=== PATIENT | female | born 1945 | race Caucasian/White ===

== ENCOUNTER 2021-11-19 00:31 | Day surgery (SDC) | payer OTHER, SELFPAY ==
[2021-11-18 12:55] VITALS: BMI 31.0
[2021-11-19] VITALS (17 sets, daily range): BP systolic 110–159; BP diastolic 49–84; PULSE 58–79; RESP 15–19; TEMP 36.4–37.4; O2SAT 93–100; BMI 31.4
[2021-11-19] MEDS: SODIUM CHLORIDE 0.9% IV 500 ML 100 ML IV CONT (09:35)
[2021-11-19 09:42] LABS: Basophils Absolute Auto 0.1 K/mm3 (0.0-0.1); Basophils Percent Auto 0.9 % (0.2-1.2); Eosinophils Absolute Auto 0.2 K/mm3 (0-0.3); Eosinophils Percent Auto 2.9 % (0-4.4); Hematocrit 39.1 % (37.0-47.0); Hemoglobin 12.6 g/dL (12.0-15.0); Immature Granulocyte Absolute 0.02 K/mm3 (0.00-0.031); Immature Granulocyte Percent A 0.3 % (0-0.5); Lymphocytes Percent Auto 20.6 % (18.3-44.2); Mean Corpuscular HGB Conc 32.2 g/dl (32-36); Mean Corpuscular Hemoglobin 30.1 pg (26-34); Mean Corpuscular Volume 93.5 fl (80-100); Mean Platelet Volume 11.2 fl (7.4-10.4); Monocytes Absolute Auto 0.9 K/mm3 (0.1-0.6); Monocytes Percent Auto 12.8 % (2.6-8.5); Neutrophils Absolute Auto 4.2 K/mm3 (1.3-6.7); Neutrophils Percent Auto 62.5 % (45.5-73.1); Platelet Count Result 281 k/mm3 (150-375); Red Blood Count 4.18 M/mm3 (4.2-5.4); Red Cell Distribution Width 13.4 % (11.5-14.5); White Blood Count 6.8 K/mm3 (4.5-10.0)
[2021-11-19 10:43] LABS: Prothrombin Time 13.1 Seconds (11.1-14.7)
[2021-11-19 10:45] LABS: Anion Gap 5 mmol/L (8-16); Blood Urea Nitrogen 22 mg/dL (7-17); Calcium 8.5 mg/dL (8.4-10.2); Carbon Dioxide 27 mmol/L (22-30); Chloride 105 mmol/L (98-107); Estimated CRCL calculation 56 ml/min; Estimated Glomerular Filt Rate > 60; Glucose 98 mg/dL (65-110); Potassium 3.6 mmol/L (3.4-5.0); Sodium 137 mmol/L (137-145)
--- NOTE | 2021-11-19 12:16 | SUR.PREOP ---
[facility] HAS BEEN DELAYED PAST 1030 START TIME DUE TO INPATIENT PROCEDURE BEING PERFORMED BY DR. MONTGOMERY. PT. AND FAMILY HAVE BEEN ADVISED ON SUCH PRIOR TO DELAY AND KEPT UPDATED. VOICE UNDERSTANDING.
--- NOTE | 2021-11-19 12:28 | SUR.PREOP ---
DR. MONTGOMERY TO BEDSIDE TO SEE PT.
--- NOTE | 2021-11-19 12:37 | WPDHPUPDATE1 ---
History and Physical Update Update Date/Time: 11/19/21 12:37 History and Physical has been reviewed, including an updated exam of the patient. There are NO changes in the patient's condition. Risks, benefits, and alternatives have been discussed and questions answered. Patient agrees to proceed with procedure.
--- NOTE | 2021-11-19 12:37 | WPDMODSED ---
Moderate Sedation Note-Pt Data Patient Data Allergies Allergy/AdvReac Type Severity Reaction Status Date / Time alcohol Allergy Severe ITCHING Verified 11/19/21 10:23 ranitidine Allergy Intermediate ITCHING Verified 11/19/21 10:23 Rphrmpi-[id number] Reductase AdvReac Insomnia Verified 11/19/21 10:23 Inhibitor ANESTHESIA Allergy Severe LIP AND Uncoded 11/19/21 10:23 TONGUE SWELLING Home Medications Medication Instructions Recorded Confirmed Type diclofenac sodium 75 mg 75 mg PO BID #180 tablet 09/03/21 11/18/21 Rx tablet,delayed release ascorbate calcium (vitamin C) 500 500 mg PO DAILY PRN 09/15/21 11/18/21 History mg tablet aspirin 81 mg tablet,delayed 81 mg PO HS 09/15/21 11/18/21 History release ezetimibe 10 mg tablet 10 mg PO DAILY 09/15/21 11/18/21 History hydrochlorothiazide 25 mg tablet 25 mg PO DAILY 09/15/21 11/18/21 History losartan 100 mg tablet 100 mg PO DAILY 09/15/21 11/18/21 History multivitamin 1 tablet PO DAILY 09/15/21 11/18/21 History omeprazole 20 mg capsule,delayed 20 mg PO DAILY 09/15/21 11/18/21 History release vitamin B complex 1 tablet PO DAILY 09/15/21 11/18/21 History Current Medications: Active Medications Sodium Chloride (Normal Saline Iv) 500 mls @ 100 mls/hr IV CONT .Q5H BERTIN Last Admin: 11/19/21 09:35 Dose: 100 mls/hr Documented by: Sedation/Anesthesia: No previous sedation/anesthesia problems (including family history). [facility] Past Medical History Medical History Allergic urticaria Carotid stenosis, left 04/2014 GERD (gastroesophageal reflux disease) Hypertension Osteoarthritis of hands, bilateral Pure hypercholesterolemia, unspecified Unilateral primary osteoarthritis, right knee Surgical History Surgical History History of total left knee replacement (TKR) Family History Family History Mother Cerebrovascular accident Dementia Other Family history of arthritis Hypertension Social History Social History Smoking status: Never smoker Second hand tobacco smoke exposure: No Alcohol intake: former Substance use: never Substance use type: does not use Living arrangements: alone Gender identity (if verbalized by the patient): Female Sexual Orientation (if Verbalized by the Patient): Straight or Heterosexual Spiritual care concerns: Yes Agree to blood products: Yes Mod Sed Physical Exam Physical Exam Pre Procedural Exam: Normal: Appearance, Eyes, Ears, Nose, Neck, Throat, Airway, Lungs, Heart Size, Heart Rate, Heart Rhythm, Neuro Exam, Abdomen, Liver, Kidneys, Spleen, Breasts, Genitalia, Extremities and Skin Hours since solid foods: 8 Hours since liquid intake: 8 Mallampati Classification: class 1 Internal Medicine - PN: Obj Da Vital Signs Vital Signs: Vital Signs - 24 hr 11/19/21 09:56 Temperature 36.6 C Pulse Rate 58 L Respiratory Rate 18 Blood Pressure 145/56 H Pulse Oximetry 100 Meds/Results Medications: Active Medications Generic Name Dose Route Start Last Admin Trade Name Freq PRN Reason Stop Dose Admin Sodium Chloride 500 mls @ 100 mls/hr 11/19/21 09:00 11/19/21 09:35 Normal Saline Iv IV CONT 100 mls/hr .Q5H BERITN Administration Labs CBC & Chem 7: 11/19/21 09:32 11/19/21 10:09 Labs: Laboratory Results - last 24 hr 11/19/21 11/19/21 11/19/21 09:32 10:09 10:09 WBC 6.8 RBC 4.18 L Hgb 12.6 Hct 39.1 MCV 93.5 MCH 30.1 MCHC 32.2 RDW 13.4 Plt Count 281 MPV 11.2 H Immature Gran % (Auto) 0.3 Neut % (Auto) 62.5 Lymph % (Auto) 20.6 Atkinson % (Auto) 12.8 H Eos % (Auto) 2.9 Baso % (Auto) 0.9 Lymph # (Auto) 1.40 Atkinson # (Auto) 0.9 H Eos # (Auto) 0.2 Baso # (Auto) 0.1 Abs Im
--- NOTE | 2021-11-19 12:38 | P.PCNCC_ITS ---
Cardiac Cath Procedure Note Date of procedure:: 11/19/21 Performing physician:: Baltazar Prado MD date of service 11/19/2021 Indication:: abnormal stress test Brief clinical history:: this 76-year-old female with history of hyperlipidemia and hypertension has been having exertion chest pain and shortness of breath underwent stress testing that shows anterior ischemia. Procedure Procedure performed:: 1-Moderate sedation that started at 12:40 p.m. and ended [id number] using 2mg of Versed and 50mcg fentanyl. The registered nurse was bhumi cam 2-Selective left and right coronary angiogram. 3-Left heart catheterization with measurement of LVEDP and measurement of gradient across aortic valve. 4- deployment of drug-eluting stent Xience 2.5 x 12 covering the mid LAD. postdilatation of the stent using 2.5 x 8 noncompliant balloon to inflations under nominal pressure for 25 seconds each. 4-Right common femoral arterial angiogram. 5-Deployment of 6 Indonesian Angio-Seal. Sedation/Medication given:: Moderate sedation. Access site:: Right common femoral artery. Estimated blood loss:: 10cc Procedure note:: After informed consent patient was brought in to lab coordinator with the was draped and prepped in usual manner. Moderate sedation was given and the right groin was infiltrated using 1% lidocaine. Five Indonesian sheath was obtained using micropuncture needle and the modified Seldinger technique. Selective left coronary angiogram was done using JL3.5 catheter with the tip of the catheter placed in the left main coronary artery. Selective right coronary angiogram was done using JR4 catheter with the tip of the catheter placed to the right coronary artery. After that 5 Indonesian pigtail catheter was advanced across the aortic valve into the left ventricle with measurement of LVEDP and measurement of gradient across aortic valve. Right common femoral arterial angiogram was done. after that 6 Indonesian she has inserted in right femoral artery. CLS 3 was advanced engaging the left main. Coronary wire advanced in distal LAD. Balloon angioplasty was done using 2.5 x 10 to mid LAD and a normal pressure for 25 seconds. Two inflations. Deployed a drug-eluting stent Xience 2.5 x 12 covering mid LAD. Postdilatation of the stent using 2.5 x 8 noncompliant balloon 2 inflations each under normal pressure for 25 seconds Findings:: 1- left coronary artery is a large artery that divides into LAD, circumflex artery. Left main is free of disease. 2- left anterior descending artery is a Medium size artery that runs to the apex. Mid LAD 80%. Large diagonal branch comes after the stenosis with minimal irregularities. Lad diffusely calcified proximally in the mid segment. 3- leftcircumflex artery is a large artery. Diffuse calcification proximally with minimal irregularities. High OM1 with minimal irregularities, medium-sized OM2 with ostial 90%, medium-sized OM3 without significant disease. 4- right coronary artery is Diffusely calcified with minimal irregularities. 5- LVEDP was 10 mm Hgand no gradient across aortic valve. 6- opening arterial pressure was 160/80 and closing pressure was 170/90 7- right femoral artery angiogram shows no significant disease in the right common femoral artery. Conclusion:: - Successful stenting of mid LAD\ - high-grade stenosis at ostial OM branch that is medium in size however high risk for intervention. will be managed medically Assessment and Plan Additional Plan continue aspirin and Brilinta aggressive risk factor modification for CAD
--- NOTE | 2021-11-19 14:43 | ECG_ITS ---
Measurements Intervals [place] Rate: 57 P: 54 MA: 151 QRS: 46 QRSD: 96 T: 20 QT: 423 QTc: 414 Interpretive Statements SINUS BRADYCARDIA EARLY TRANSITION CANNOT RULE OUT INFERIOR INFARCTION, AGE UNDETERMINED NONSPECIFIC T-WAVE ABNORMALITY ABNORMAL ECG NO PREVIOUS ECG AVAILABLE FOR COMPARISON Electronically Signed On 11-19-2021 16:04:47 CDT by Rashel Lozano M.D.
--- NOTE | 2021-11-19 15:30 | SUR.PHASEII ---
All charting is now currently in PCS
--- NOTE | 2021-11-19 16:32 | PC.NURSE ---
This patient, Lexy Mccoy, was received from [facility] on 11/19/21 at 1632. Patient/family oriented to unit policies and routines
--- NOTE | 2021-11-19 16:54 | PC.NURSE ---
At 1516 Patient who presented as outpatient [facility] is now admitted to extended recovery IMU status s/p PCI. Patient charting converted from ASHLEY tracker to PCS. Patient in stable condition.
--- NOTE | 2021-11-19 17:00 | PC.NURSE ---
Patient transferred to IMU bed 7 monitored via stretcher with RN x2 at 16:30. Bedside report given to Debby KEYES.
[2021-11-19] MEDS: SODIUM CHLORIDE 0.9% IV 1,000 ML 125 ML IV CONT (17:29)
[2021-11-19] MEDS: ASPIRIN 81 MG ENTERIC TABLET PO (21:08)
[2021-11-19] MEDS: TICAGRELOR 90 MG TABLET PO (21:08)
[2021-11-20 04:00] VITALS: BP 117/48; PULSE 57; RESP 16; TEMP 36.2; O2SAT 97
[2021-11-20 05:06] VITALS: O2SAT 97
[2021-11-20 05:18] LABS: Anion Gap 4 mmol/L (8-16); Blood Urea Nitrogen 16 mg/dL (7-17); Carbon Dioxide 24 mmol/L (22-30); Chloride 109 mmol/L (98-107); Estimated CRCL calculation 56 ml/min; Estimated Glomerular Filt Rate > 60; Glucose 118 mg/dL (65-110); Potassium 3.7 mmol/L (3.4-5.0); Sodium 137 mmol/L (137-145)
--- NOTE | 2021-11-20 07:00 | ECG_ITS ---
Measurements Intervals [place] Rate: 60 P: 73 CO: 145 QRS: 14 QRSD: 105 T: -1 QT: 392 QTc: 393 Interpretive Statements SINUS RHYTHM EARLY TRANSITION PROBABLE INFERIOR MYOCARDIAL INFARCTION , PROBABLY OLD WITH POSTERIOR EXTENSION [35 ms Q WAVE IN II/aVFPROMINENT R WAVE IN V1/ NONSPECIFIC T-WAVE ABNORMALITY ABNORMAL ECG COMPARED TO ECG 11/19/2021 14:50:36 SINUS RHYTHM NOW PRESENT Electronically Signed On 11-20-2021 16:23:54 CDT by Rashel Lozano M.D.
[2021-11-20 08:00] VITALS: BP 119/48; PULSE 58; PULSE 62; RESP 16; TEMP 36.4; O2SAT 96
--- NOTE | 2021-11-20 08:44 | PM.DS ---
DS: Admitting Diagnosis Discharge Date 11/20/21 Admitting Diagnosis CAD DS: Discharge Diagnosis Discharge Diagnosis (1) Presence of coronary angioplasty implant and graft: Onset Date: ~10/2021 Code(s): Z95.5 - Presence of coronary angioplasty implant and graft Status: Acute Assessment and Plan: Entered the hospital following elective coronary angiogram and PCI on 11/19/2021. Was found to have 80% stenosis of the mid LAD which was treated with placement of a 2.5 x 12mm ZACARIAS. She also has high grade stenosis at the ostium of the OM branch that was considered too high risk for intervention. This will be managed medically. She is stable this morning, feeling well and denies any chest pain or shortness of breath. Plan for d/c home today. (2) CAD (coronary artery disease): Code(s): I25.10 - Atherosclerotic heart disease of [place] coronary artery without angina pectoris Status: Acute Assessment and Plan: Coronary artery disease as described above Continue ASA Continue Brilinta Continue zetia Lifestyle modifications for CAD risk reduction DS: Summary Hospital Course Hospital Course: Presented for planned coronary angiogram on 11/19/2021. Findings are as follows: 1- left coronary artery is a large artery that divides into LAD, circumflex artery. Left main is free of disease. 2- left anterior descending artery is a Medium size artery that runs to the apex. Mid LAD 80%. Large diagonal branch comes after the stenosis with minimal irregularities. Lad diffusely calcified proximally in the mid segment. 3- left circumflex artery is a large artery. Diffuse calcification proximally with minimal irregularities. High OM1 with minimal irregularities, medium-sized OM2 with ostial 90%, medium-sized OM3 without significant disease. 4- right coronary artery is Diffusely calcified with minimal irregularities. 5- LVEDP was 10 mm Hg and no gradient across aortic valve. 6- opening arterial pressure was 160/80 and closing pressure was 170/90 7- right femoral artery angiogram shows no significant disease in the right common femoral artery. She did not have any procedural complications. Feeling well this morning without complaint. She is stable and appropriate for discharge home today. Status at Discharge Functional status at discharge: independent ambulation Overall status at discharge: patient is back to baseline Time Spent with Patient Time attestation: Total time spent providing and/or coordinating discharge services: Exam Const: General: comfortable and no acute distress HENMT: Head: normal to inspection and normocephalic Ears: hearing grossly normal bilaterally Eyes: General: appearance normal, both eyes and all related structures Neck: Neck: supple and no JVD Resp: Auscultation: clear to auscultation bilaterally Cardio: Rate: regular rate Rhythm: regular rhythm Heart sounds: Murmur heart sound present systolic I/ and at the left sternal border GI: GI Palp: Yes Soft to palpation Skin: General skin exam: normal color Other: R groin arterial access site free from bleeding, hematoma, or bruit. Extrem: General: normal to inspection and no edema Other: distal pulses intact Psych: Mental Status: mental status grossly normal Speech and movement: Normal speech and movement present DS: Data Data Completed and Pending Labs on day of discharge: Labs from last 24 hours 11/20/21 11/19/21 11/19/21 04:47 10:09 10:09 WBC RBC Hgb Hct MCV MCH MCHC RDW Plt Count MPV Immature Gran % (Auto) Neut % (Auto) Lymph % (Auto) Hardy % (Auto) Eos % (Auto) Baso % (Auto) Lymph # (Auto) Hardy # (Auto) Eos # (Auto) Baso # (Auto) Abs Immat Gran (auto) Absolute Neuts (auto) Absolute Nucleated RBC Nucleated RBC % PT 13.1 INR 1.0 Sodium 137 137 Potassium 3.7 3.6 Chloride 109 H 105 Carbon Dioxide 24 27
[2021-11-20] MEDS: LOSARTAN POTASSIUM 100 MG TABLET PO (08:59)
[2021-11-20] MEDS: VITAMIN B COMPLEX CAPSULE 1 CAP PO (08:59)
[2021-11-20] MEDS: TICAGRELOR 90 MG TABLET PO (08:59)
[2021-11-20] MEDS: EZETIMIBE 10 MG TABLET PO (08:59)
[2021-11-20] MEDS: hydroCHLOROthiazide 25 MG TABLET PO (08:59)
[2021-11-20] MEDS: PANTOPRAZOLE 40 MG TABLET PO (08:59)
--- NOTE | 2021-11-20 13:52 | PCCCNOTE ---
On 11/20/21, the student, [Swetha Anne], provided care and completed [facility] documentation on this patient. I have reviewed the student's documentation and agree with the findings.
== END 2021-11-20 11:23 | disposition home or self-care (01) ==
LOC: ANHCATHLAB 09:09 → ANHIMU 15:18
PROVIDERS: PCP Family Medicine Adolescent Medicine; Visit Provider Internal Medicine Cardiovascular Disease
PROC: 4A023N7 Measurement of Cardiac Sampling and Pressure, Left Heart, Percutaneous Approach (ICD-10-PCS; CPT 93452; principal; 2021-11-19 10:30)
DX: I25.10 Atherosclerotic heart disease of native coronary artery without angina pectoris (principal); R94.39 Abnormal result of other cardiovascular function study; R07.9 Chest pain, unspecified; R06.02 Shortness of breath; I10 Essential (primary) hypertension; E78.5 Hyperlipidemia, unspecified; K21.9 Gastro-esophageal reflux disease without esophagitis; Z79.82 Long term (current) use of aspirin
CPT/HCPCS: 36415; 80048; 85025; 85610; 93005; 93458; A9270; C1725; C1760; C1769; C1874; C1887; C1894; C9600; G0269; J0583; J1200; J1644; J2250; J2930; J3010; J7030; J7040

== ENCOUNTER 2021-11-25 13:30 | Outpatient (RCR) | payer OTHER, SELFPAY ==
--- NOTE | 2021-09-23 09:42 | PTOPEVAL ---
PHYSICAL THERAPY EVALUATION and PLAN OF CARE Thank you for referring Lexy Mccoy to [facility] [place].? The patient is scheduled to be seen for therapy? 1x/week for 3 weeks. Please review, sign, date and return this plan of care PREMA. I agree with and certify that the following plan of care is medically necessary. Referring Physician Date Attending Provider: Debby Philip PA-C Evaluation Diagnosis right shoulder/arm pain Onset 3months ago Subjective Information States that she feels like she Query Text:As Reported By Patient/ has a frozen shoulder - this Family feels like a frozen shoulder she had several years ago. Most recently though she has developed a pain in the upper arm that actually stopped when taking an antibiotic for dental work. The sharp pain is now gone but she cannot use her computer mouse without an ache starting in and she has quite limited shoulder ROM. Self Report Pain Assessment Right Arm(s) Reported Pain Level 2 Pain Description Aching Pain Frequency Chronic,Continuous Greatest Pain Intensity 8 Pain Score Pain Score 2: Self Report Interventions Used Interventions Used By Clinicians Exercise,Manual Therapy Techniques Pain Relief Interventions Used By Inactivity/Rest Patient Upper Extremity Range of Motion Scapular/ Shoulder Range of Motion Right Shoulder Flexion - Active 110 Shoulder Abduction - Active 75 Shoulder Medial Rotation - Active iliac crest Query Text:Reach Behind the Back Shoulder Lateral Rotation - Active 32 Upper Extremity Muscle Strength Testing Scapular/Shoulder Right Shoulder Flexion Strength 3 Fair Shoulder Abduction Strength 3 Fair Shoulder Medial Rotation Strength 4 Good Shoulder Lateral Rotation Strength 4 Good Elbow/Forearm Right Elbow Flexion Strength 4+ Good + Elbow Extension Strength 4+ Good + Special Tests-Upper Extremity Shoulder Special Tests Speed's Test Positive Right PT Clinical Summary Lexy is a 76 yo female presenting to outpatient physical therapy with chornic right shoulder pain/frozen shoulder but with more subacute right biceps pain that does present consistently with biceps tendonitis. She
--- NOTE | 2021-10-15 13:29 | PTOPEVAL ---
PHYSICAL THERAPY PROGRESS REPORT Thank you for referring Lexy Mccoy to [facility].? The patient is scheduled to be seen for therapy?for a re-assess in 3 weeks. Please review, sign, date and return this plan of care PREMA. I agree with and certify that the following plan of care is medically necessary. Referring Physician Date Attending Provider: Debby Philip PA-C Progress Diagnosis right shoulder/arm pain Onset 3months ago Subjective Information States that the big pain in Query Text:As Reported By Patient/ the shoulder has not come back Family except for one episode of sharp pain. Continues to stretch as much as she can Self Report Pain Assessment Right Arm(s) Reported Pain Level 1 Pain Score Pain Score 1: Self Report Interventions Used Interventions Used By Clinicians Exercise Upper Extremity Range of Motion Scapular/ Shoulder Range of Motion Right Shoulder Flexion - Active 120 Shoulder Abduction - Active 80 Shoulder Medial Rotation - Active right PSIS Query Text:Reach Behind the Back Shoulder Lateral Rotation - Active 52 Upper Extremity Muscle Strength Testing Scapular/Shoulder Right Shoulder Flexion Strength 4- Good - Shoulder Abduction Strength 4- Good - Shoulder Medial Rotation Strength 4+ Good + Shoulder Lateral Rotation Strength 4+ Good + Shoulder Strength Comments tends to hold right shoulder in a hiked position and requires tactile and verbal cues to relax that shoulder. PT Clinical Summary Lexy is a 76 yo female presenting to outpatient physical therapy with chronic right shoulder pain/frozen shoulder. She is progressing toward meeting her goals with increased shoulder ROM and strength compared to initial visit. She is going to continue her HEP and we will re-assess in 3 weeks. PT Services Indicated Yes Rehabilitation Potential Good Patient/Caregiver's Personal Goals for decrease pain Rehabilitation Potential Barriers to Goal Achievements None Support Requirements For Optimal None [place] Patient/Caregiver Informed of Benefits/ Yes Risks of Rehabilitation Patient/Caregiver Participated in Plan Yes of Care Patient/Caregiver Agreed with Problem Yes List/POC/Goals Treatment Frequency and Duration revisit in 3 weeks
[2021-11-05 14:02] VITALS: BP_SYST 115
--- NOTE | 2021-11-05 14:38 | PTOPEVAL ---
PHYSICAL THERAPY PROGRESS REPORT Thank you for referring Lexy Mccoy to [facility].? We will follow up with Lexy every 3 weeks for 2 months or until goals are met. Please review, sign, date and return this plan of care PREMA. I agree with and certify that the following plan of care is medically necessary. Referring Physician Date Attending Provider: Debby Philip PA-C Discharge Diagnosis right shoulder/arm pain Onset 3months ago Subjective Information Since she was last here 3 Query Text:As Reported By Patient/ weeks ago she experienced Family severe neck pain/stiffness that lasted for 3 days. She had a nuclear stress test and will likely be geting a stent soon. States that she has not been able to get a lot of exercises done. Self Report Pain Assessment Right Arm(s) Reported Pain Level 1 Pain Score Pain Score 1: Self Report Interventions Used Interventions Used By Clinicians Exercise Pain Relief Interventions Used By Inactivity/Rest Patient Upper Extremity Range of Motion Scapular/ Shoulder Range of Motion Right Shoulder Flexion - Active 128 Shoulder Flexion - Passive 140 Shoulder Abduction - Active 100 Shoulder Abduction - Passive 115 Shoulder Medial Rotation - Active right PSIS Query Text:Reach Behind the Back Shoulder Lateral Rotation - Active 55 Upper Extremity Muscle Strength Testing Scapular/Shoulder Right Shoulder Flexion Strength 3 Fair Shoulder Abduction Strength 4 Good Shoulder Medial Rotation Strength 4+ Good + Shoulder Lateral Rotation Strength 4+ Good + Elbow/Forearm Right Elbow Flexion Strength 5 Normal Elbow Extension Strength 5 Normal Palpation Assessment tender on palpation to subscapularis and serratus anterior; PT Clinical Summary Lexy is a 76 yo female presenting to outpatient physical therapy with chronic right shoulder pain/frozen shoulder. There was a limitation to her progress with her HEP because of several other medical situations. She does respond well to prolonged stretching and capsular mobilizations. We will continue to follow up every 3 weeks for 2months or until goals are met. PT Services Indicated Yes R
[2021-11-25 13:32] VITALS: BP_SYST 115
--- NOTE | 2021-11-25 14:42 | PTOPEVAL ---
PHYSICAL THERAPY DISCHARGE NOTE Thank you for referring Lexy Mccoy to [facility].? Please review, sign, date and return this plan of care PREMA. I agree with and certify that the following plan of care is medically necessary. Referring Physician Date Attending Provider: Debby Philip PA-C DISCHARGE Diagnosis right shoulder/arm pain Onset 3months ago Subjective Information States that she is going to Query Text:As Reported By Patient/ start cardiac rehab so she Family would like today to be her last day with us. Her pain is not terrible but it does bother her to wear a purse on her shoulder. Sometimes the lack of movement is bothersome and sometimes not. She was told by a nurse about the option of an injection to the shoulder to help so we discussed that as an opportunity and would need to follow-up with primary care doctor on that conversation. Pain Assessment Timing of Pain Assessment Timing of Pain Assessment Assessment Pain Scale Pain Scale Used Numeric (1 - 10) Self Report Pain Assessment Right Arm(s) Reported Pain Level 0 Pain Score Pain Score 0: Self Report Interventions Used Interventions Used By Clinicians Exercise Upper Extremity Range of Motion Scapular/ Shoulder Range of Motion Right Shoulder Flexion - Active 132 Shoulder Flexion - Passive 140 Shoulder Abduction - Active 100 Shoulder Abduction - Passive 115 Shoulder Medial Rotation - Active L3 Query Text:Reach Behind the Back Shoulder Lateral Rotation - Active 55 Upper Extremity Muscle Strength Testing Scapular/Shoulder Right Shoulder Flexion Strength 3 Fair Shoulder Abduction Strength 4- Good - Shoulder Medial Rotation Strength 4+ Good + Shoulder Lateral Rotation Strength 4+ Good + Elbow/Forearm Right Elbow Flexion Strength 5 Normal Elbow Extension Strength 5 Normal PT Clinical Summary Lexy is a 76 yo female presenting to outpatient physical therapy with chronic right shoulder pain/frozen shoulder. She is plateauing in progress to formal physical therapy treatment and she is going to start Cardiac rehab and cannot afford both co-pays
== END 2021-11-26 07:20 | disposition home or self-care (01) ==
LOC: ANHPT 13:30
PROVIDERS: PCP Family Medicine Adolescent Medicine; Visit Provider Physician Assistant
DX: M79.601 Pain in right arm (principal)
CPT/HCPCS: 97110; 97140; 97162

== ENCOUNTER 2021-12-28 11:00 | Outpatient (RCR) | payer OTHER, SELFPAY | END 2022-01-04 11:04 | disposition home or self-care (01) | LOC: ANHCPREHAB 11:00 | PROVIDERS: PCP Family Medicine Adolescent Medicine; Visit Provider Nurse Practitioner | DX: Z95.5 Presence of coronary angioplasty implant and graft (principal) | CPT/HCPCS: 93798 ==

== ENCOUNTER 2024-06-21 15:48 | Outpatient (CLI) | payer OTHER, SELFPAY ==
--- NOTE | ~2024-06-21 | MM_ITS ---
EXAMINATION: MM screening nadir BI w lydia HISTORY: Screening TECHNIQUE: Craniocaudal and mediolateral oblique 3-D tomosynthesis images were obtained and synthetic 2-D images were generated. CAD analysis was submitted and interpreted. COMPARISON: Comparison to multiple prior studies sequentially, with oldest reviewed study dated 12/22. BREAST PARENCHYMAL COMPOSITION: Dense: The breasts are heterogeneously dense, which may obscure small masses FINDINGS: There is no evidence of suspicious mass, calcification, or architectural distortion to sugg est malignancy in either breast. There has been no suspicious interval change. IMPRESSION: 1. No mammographic evidence of malignancy. 2. Recommend routine screening mammography in one year. BI-RADS Category 1: Negative Reviewed, dictated and finalized at location B.
== END 2024-06-21 15:49 | disposition home or self-care (01) ==
LOC: ANHIMG 15:49
PROVIDERS: PCP Family Medicine Adolescent Medicine; Visit Provider Family Medicine Adolescent Medicine
DX: Z12.31 Encounter for screening mammogram for malignant neoplasm of breast (principal)
CPT/HCPCS: 77063; 77067

== ENCOUNTER 2025-06-11 13:00 | Outpatient (CLI) | payer OTHER, SELFPAY ==
--- NOTE | ~2025-06-11 | XR_ITS ---
EXAMINATION: XR shoulder RT min 2V, 06/11/2025 13:10 CDT HISTORY: shoulder replacement x 3 months ago COMPARISON: No comparisons available. Findings: No acute fracture or malalignment. Arthroplasty intact Soft tissues unremarkable. Impression: No acute fracture or malalignment. Reviewed, dictated and finalized at location P. Impression: No acute fracture or malalignment.
== END 2025-06-11 13:01 | disposition home or self-care (01) ==
PROVIDERS: PCP Orthopaedic Surgery; Visit Provider Orthopaedic Surgery
DX: M25.511 Pain in right shoulder (principal); Z96.611 Presence of right artificial shoulder joint
CPT/HCPCS: 73030

== ENCOUNTER 2025-07-01 10:59 | Outpatient (CLI) | payer OTHER, SELFPAY ==
--- NOTE | ~2025-07-01 | XR_ITS ---
EXAMINATION: XR knee RT 3V, 07/01/2025 11:03 BARTENDER HISTORY: worsening osteoarthritis COMPARISON: No comparisons available. Findings: No acute fracture or malalignment. Severe tricompartmental degenerative changes with small effusion Soft tissues unremarkable. Impression: No acute fracture or malalignment. Reviewed, dictated and finalized at location P. ENDER Impression: No acute fracture or malalignment.
== END 2025-07-01 11:00 | disposition home or self-care (01) ==
LOC: MICIMG 11:00
PROVIDERS: PCP Family Medicine Adolescent Medicine; Visit Provider Family Medicine Adolescent Medicine
DX: M17.11 Unilateral primary osteoarthritis, right knee (principal)
CPT/HCPCS: 73562

== ENCOUNTER 2025-07-23 09:25 | Outpatient (CLI) | payer OTHER, SELFPAY ==
--- NOTE | ~2025-07-23 | DEXA_ITS ---
Bone Density Report Name: NADIA CISNEROS Age: 79 Sex: Female Ethnicity: White Date of : 1945 Indication: osteopenia; height loss; prior fracture; hysterectomy; Referring Provider: IGNACIO FABIAN Study: Bone densitometry was performed. Exam Date: July 23, 2025 Accession number: [id number] Bone Density: Region BMD T-score Z-score Classification AP Spine(L2, L3, L4) 1.063 -0.1 2.7 Normal Femoral Neck (Left) 0.725 -1.1 1.2 Osteopenia Total Hip (Left) 0.863 -0.6 1.5 Normal Femoral Neck (Right) 0.669 -1.6 0.7 Osteopenia Total Hip (Right) 0.762 -1.5 0.6 Osteopenia Total Hip Mean 0.812 -1.1 1.1 Osteopenia World Health Organization criteria for BMD impression classify patients as: Normal (T-score at or above -1.0), Osteopenia (T-score between -1.0 and -2.5), or Osteoporosis (T-score at or below -2.5). 10-year Fracture Risk(1): Major Osteoporotic Fracture 20% Hip Fracture 4.7% Reported Risk Factors: [place] (), Neck BMD=0.669, BMI=27.1, previous fracture (1) FRAX(R) Version 3.08. Fracture probability calculated for an untreated patient. Fracture probability may be lower if the patient has received treatment. Previous Exams: -- Region Exam Age BMD T-score BMD Change BMD Change Date g/cm2 vs Baseline vs Previous -- AP Spine (L2-L4) 07/23/2025 79 1.063 -0.1 8.6%# 11.9%# 08/07/2013 67 0.950 -1.2 -2.9%# 8.6%* 11/17/2005 60 0.874 -1.9 -10.6%# -10.6%# 07/17/2002 56 0.979 -0.9 Total Hip(Left) 07/23/2025 79 0.863 -0.6 -18.5%# -18.5%# 08/07/2013 67 1.058 1.0 0.0%# -5.1%* 11/17/2005 60 1.115 1.4 5.4%# 5.4%# 07/17/2002 56 1.059 1.0 Total Hip(Right) 07/23/2025 79 0.762 -1.5 -31.3%# -29.7%# 08/07/2013 67 1.084 1.2 -2.3%# -7.2%* 11/17/2005 60 1.168 1.8 5.3%# 5.3%# 07/17/2002 56 1.109 1.4 -- *Denotes significance at 95% confidence level, LSC for AP Spine = 0.022 g/cm2, LSC for Total Hip = 0.027 g/cm2 Rate of change results reflect vertebral levels common to all scans # Denotes dissimilar scan types or analysis methods Clinical Information Provided by Patient: Has had a low trauma fracture Has used the following medications: Vitamin D, Calcium Has the following medical conditions: Hysterectomy Patient maximum height was 62 Menopause Age: 49 No regular weight bearing exercise Drinks caffeinated beverages Onset of menses at age 11 Number of children 2 Impression: The patient has low bone mass, based on the Right Femoral Neck T-score. The patient has an estimated ten-year risk of hip fracture of 4.7% and an estimated ten-year risk of major fracture of 20%, based on the WHO FRAX algorithm. The patient has risk factors, including: previous fracture. Unable to evaluate interval change due to the use of different scan modes. Discussion: BONE DENSITY IS LOW AT ONE OR MORE SKELETAL SITES. THE PATIENT'S BMD AND CLINICAL RISK FACTORS CONTRIBUTE TO THIS PATIENT'S HIGH RISK OF FRACTURE. This patient's lowest T-score is low at one or more skeletal sites. It meets the World Health Organization's (WHO) criteria for ?low bone mass? (T-score between -1.0 and -2.5). The patient's 10-year risk of hip fracture and 10 year risk of a major osteoporotic fracture as calculated by FRAX exceeds the threshold where pharmacological therapy is recommended by the National Osteoporosis Foundation (NOF). However, all treatment decisions require clinical judgment and consideration of individual patient factors, including patient preferences, comorbidities, previous drug use, risk factors not captured in the FRAX model (e.g., frailty, falls, vitamin D deficiency, increased bone turnover, interval significant decline in bone density) and possible under or overestimation of fracture risk by FRAX. The patient should follow a healthful lifestyle (good nutrition with adequate calcium and vitamin D, and appropriate weight-bearing exercise). Follow-Up: Consider a repeat BMD and Vertebral Fracture Assessment (VFA) exam in 2 years or sooner if medically necessary, to reassess this patient's status. Reported by: SIIDORO on 07/23/2025 9:46:00 AM. Reviewed, dictated and finalized at location A.
== END 2025-07-23 09:26 | disposition home or self-care (01) ==
LOC: MICIMG 09:25
PROVIDERS: PCP Family Medicine Adolescent Medicine; Visit Provider Family Medicine Adolescent Medicine
DX: M85.88 Other specified disorders of bone density and structure, other site (principal); Z78.0 Asymptomatic menopausal state; S42.123A Displaced fracture of acromial process, unspecified shoulder, initial encounter for closed fracture; X58.XXXA Exposure to other specified factors, initial encounter
CPT/HCPCS: 77080